=== PATIENT | male | born 1965 | race Caucasian/White ===

== ENCOUNTER 2017-06-15 11:20 | Inpatient (IN) | payer BC, OTHER ==
[~2017-06-15] VITALS: Ht 182.9 cm; Wt 86.6 kg
[2017-06-15 14:15] VITALS: BP 135/87
[2017-06-15] MEDS ORDERED: ACETAMINOPHEN TAB 650MG DOSE (2X325MG) PO PRN (14:30)
[2017-06-15] MEDS ORDERED: MOM 30ML SUSPENSION UDC PO PRN (14:30)
[2017-06-15] MEDS ORDERED: NORCO, ANEXSIA 5/325MG TABLET (HYDROcodone/ACETAMINOPHEN) PO PRN (14:30)
[2017-06-15] MEDS ORDERED: BISACODYL 5 MG TAB PO PRN (14:30)
[2017-06-15] MEDS ORDERED: ACET1TAB17 PO (16:30)
[2017-06-15] MEDS ORDERED: AMLO10TA2 PO (16:30)
[2017-06-15] MEDS ORDERED: KEPP1TAB PO (16:30)
[2017-06-15] MEDS ORDERED: MIRA33504 PO (16:30)
[2017-06-15] MEDS ORDERED: SENN8.6T7 PO (16:30)
[2017-06-15] MEDS ORDERED: POLYVINYL ALCOHOL OPHTH SOLN 15 ML(LIQUITEARS) OU PRN (19:00)
--- NOTE | 2017-06-15 20:53 | CR ---
DATE OF CONSULTATION: 06/15/2017 CONSULTATION REQUESTED BY: Dr. Loco. PRIMARY CARE PROVIDER: Dr. Jorge Vazquez ENT PHYSICIAN: Dr. Harley Medellin. NEUROSURGEON AT [facility]: Dr. Suleiman Woo REASON FOR CONSULTATION: Medical management. HISTORY OF PRESENT ILLNESS: This is a 51-year-old male patient underlying medical history of diverticulitis and also left ear cholesteatoma requiring multiple surgeries by ENT provider. Patient had ENT surgery in 2002, 2007 and 2010, and most recently at [facility], seeing ENT Dr. Harley Medellin for left ear cholesteatoma. Unfortunately the hospital stay was complicated with episode of altered mental status subsequently found to have intracranial hemorrhage on the left side with air in the brain as per patient, resulting in left-sided vision loss, expressive aphasia, decrease in cognitive ability as well as right-sided weakness, upper and lower extremity weakness and patient's baseline is right-handed, is a correction office, baseline high functioning. During the episode, patient also was on Cardene drip at [facility], also requiring hypertonic saline for treatment. Patient's condition progressively improved and stabilized, subsequently was transferred to [facility] under Dr. Parvez Loco for acute rehabilitation. Patient had speech and swallow evaluation done. Patient also has left-sided facial droop with left-sided facial muscle impairment. Patient is a poor historian. Denies any chest pain, chest pain. Pressure or discomfort, fevers, chills, shortness of breath. ALLERGIES: No known drug allergies. PAST MEDICAL HISTORY: Cholesteatoma. Questionable history of hypertension. Patient is also on seizure medication given at [facility] for prophylaxis. PAST SURGICAL HISTORY: Multiple ENT surgeries for patient's cholesteatoma 2002, 2007, 2010 and most recent one that result in the intracranial hemorrhage. SOCIAL HISTORY: Patient quit smoking many years ago. Occasional alcohol use, but rarely once a week or once every two weeks. FAMILY HISTORY: Mother with GI cancer and father with prostate cancer. REVIEW OF SYSTEMS: Limited to patient's verbal ability, but patient seems to be not in any distress. MEDICATION AT [facility]: Patient was on acetaminophen 650 mg by mouth every 4 hours as needed, Norvasc 10 mg by mouth daily, Senna 8.6 50 mg by mouth at bedtime as needed, Keppra 500 mg by mouth twice a day, Chata LAX 17 grams by mouth daily as needed, PHYSICAL EXAMINATION: Vital signs: Temperature 98.5, pulse 74, respiration 18, blood pressure 135/87, pulse oximetry 90% on room air. GENERAL: Patient comfortable in no acute distress. HEENT: Left-sided facial muscle paralysis. Normocephalic. PULMONARY: Bilaterally clear to auscultation. CARDIAC: Regular S1, S2. ABDOMEN: Soft, nontender. Positive bowel sounds. EXTREMITIES: No clubbing, cyanosis or edema. NEUROLOGIC: Patient has expressive aphasia and decrease in cognitive ability. Seems to be having trouble expressing himself and having trouble with written language; unable to write sentences. Furthermore, patient has decrease in strength in right upper and lower extremities. No tongue deviation. Left-sided facial droop. Diminished hearing on the left side due to surgery. LABORATORY DATA: Pending. ASSESSMENT AND PLAN: This is a 51-year-old male patient with underlying medical history of left ear cholesteatoma, multiple surgeries done by ENT, patient was recently having operation by ENT at [facility], subsequently resulted in left-sided temporal intracranial hemorrhage with air in the brain, subsequently resulted in significant neurological deficit mentioned above requiring treatment for hypertensive emergencies as well as hypertonic saline, currently transferred to acute rehabilitation under Dr. Parvez Loco. PROBLEMS: 1. Intracranial hemorrhage with air in the brain. Advised Dr. Loco to consult neurosurgeon. Unfortunately, Dr. Loco does not believe that it is necessary to consult neurosurgeon at this point, therefore physician is uncomfortable giving blood pressure recommendation given history of severe intracranial hemorrhage with neurological deficit, unknown what is a goal blood pressure for the pressure, therefore it is recommended that neurosurgeon be involved furthermore in case there is emergencies while patient is under care. It is beneficial for neurosurgeon to be at least involved from the beginning instead of consulting them while there is an emergency, unfortunately Dr. Loco does not agree, therefore we will defer further management of blood pressure to Dr. Loco. Furthermore, patient is also on Keppra for seizure prophylaxis. We will defer the management of further medication to Dr. Loco as well given that seizure medication Keppra was prescribed by [facility] with neurosurgeon on consult. 2. Constipation. Bowel regimen was prescribed. 3. Intracranial hemorrhage. Management as per Dr. Loco. 4. Cholesteatoma with recent surgery. Further management as per ENT. Recommend getting ENT involved as necessary. 5. Deep vein thrombosis prophylaxis. Given intracranial hemorrhage, we will defer further management of deep vein thrombosis prophylaxis to neurosurgeon or to Dr. Loco. DISPOSITION: Please re-consult medicine service as needed.
[2017-06-15] MEDS: levETIRAcetam 250MG TABLET (KEPPRA) PO SCH (20:59)
[2017-06-15] MEDS: SENNA 8.6 MG TAB (SENOKOT) PO SCH (20:59)
[2017-06-15 21:00] VITALS: BP 133/73
[2017-06-16 06:00] VITALS: BP 119/75
[2017-06-16 06:36] LABS: MEAN CORPUSCULAR HEMOGLOBIN 29.4 pg (27.0-33.0); MEAN CORPUSCULAR HGB CONC 34.5 g/dl (32.0-36.5); MEAN CORPUSCULAR VOLUME 85.3 fl (80.0-96.0); PLATELET COUNT, AUTOMATED 308 10^3/uL (150-450); RED CELL DISTRIBUTION WIDTH 12.6 % (11.5-14.5); WHITE BLOOD COUNT 7.1 10^3/uL (4.0-10.0)
[2017-06-16 06:44] LABS: ADD MANUAL DIFFER YES; DIFF SLIDE NUMBER 63; POSITIVE MORPH POS FLAG; WBC SCAT POS FLAG
[2017-06-16 07:08] LABS: ALBUMIN 3.1 GM/DL (3.2-5.2); ALBUMIN/GLOBULIN RATIO 0.89 (1.00-1.93); ALKALINE PHOSPHATASE 165 U/L (45-117); ALT/SGPT 82 U/L (12-78); ANION GAP 7 MEQ/L (8-16); AST/SGOT 30 U/L (7-37); BILIRUBIN,TOTAL 1.1 MG/DL (0.2-1.0); BLOOD UREA NITROGEN 29 MG/DL (7-18); CALCIUM LEVEL 8.6 MG/DL (8.5-10.1); CARBON DIOXIDE LEVEL 34 MEQ/L (21-32); CHLORIDE LEVEL 98 MEQ/L (98-107); CREATININE FOR GFR 1.13 MG/DL (0.70-1.30); GLOMERULAR FILTRATION RATE > 60.0 (>56); GLUCOSE, FASTING 107 MG/DL (70-105); POTASSIUM SERUM 3.4 MEQ/L (3.5-5.1); SODIUM LEVEL 139 MEQ/L (136-145); TOTAL PROTEIN 6.6 GM/DL (6.4-8.2)
[2017-06-16 07:10] LABS: BASOPHILS 1 % (0-4)
[2017-06-16] MEDS: amLODIPine 5 MG TAB PO SCH (08:44)
[2017-06-16] MEDS: levETIRAcetam 250MG TABLET (KEPPRA) PO SCH ×2 (08:44→20:30)
[2017-06-16 14:00] VITALS: BP 137/72
--- NOTE | 2017-06-16 15:42 | PMRHPE ---
DATE OF ADMISSION: 06/15/2017 REASON FOR ADMISSION: Left intracerebral hemorrhage/CVA secondary to cholesteatoma resection from the left mastoid region on 06/05/2017, that has been complicated by aphasia, dysphagia, dysarthria, left facial droop, left tongue deviation, right upper and lower extremity sensory motor deficit, greater in the upper than lower extremity. HISTORY OF PRESENT ILLNESS: Patient is a 51-year-old white male who was having an elective left cholesteatoma removed on 06/05/2017, at [facility] in [place]. The patient previously was independent in activities of daily living and mobility and driving and right hand dominant. During the course of the operation, the patient developed a left facial droop and subsequent brain imaging showed moderate sized parenchymal hematoma of the left temporal lobe with the symptoms noted above. The patient has been being treated to improve nutrition and medically stabilized and then started in physical, occupational, and speech therapy and has finally been able to participate at a higher level of functioning and is felt to be appropriate today for neurorehabilitation and was discharged from [facility] and is to be admitted today to the acute rehabilitation unit at [facility] for neurorehabilitation including physical therapy, occupational therapy and speech therapy. Upon admission, patient expressed his frustration with not going directly home, though his family was in agreement and aware that he was being admitted here for neurorehabilitation. PAST MEDICAL HISTORY: Includes cholesteatoma removal, diverticular disease, left-sided hearing loss from prior cholesteatoma removal, and problems with equilibrium. PAST SURGICAL HISTORY: Included middle ear surgery on the left in 2004 and 2007 with left mastoidotomies. ALLERGIES: No known allergies. Home medications were just the multivitamin medications. On admission today, are: - Tylenol - [place] 325/5 - amlodipine for hypertension 5 mg daily - Dulcolax tablets 5 mg daily as needed for constipation, no bowel movement of significance in the last few days - Keppra 500 mg twice a day for seizure prophylaxis - milk of magnesia 30 mL daily as needed for constipation - Senokot one tablet by mouth nightly for bowel management SOCIAL HISTORY: The patient lives with his . Does not drink other than occasional alcohol. No illicit drugs and does not smoke.. FAMILY HISTORY: Includes father with prostate cancer. REVIEW OF SYSTEMS: Principally those noted above. PHYSICAL EXAMINATION: The patient is an average height, 86 kg, middle aged white male who looks approximately his stated age except for premature balding and has left facial droop and seems to not appreciate his situation well. VITAL SIGNS: Temperature is 98.5, blood pressure 135/87, with a pulse of 72, respirations 18, pulse oximetry 98% on room air. HEENT: Shows difficulty with closing the right eye, frequently blinking it, and right pupil being approximately 1-2 mm larger than the left, the right being approximately 8 mm, the left being 6-7 mm. Extraocular motion: Patient having difficulty concentrating to do the tracking versus poor effort. Nasal area shows straight septum and nasal passages clear without drainage. Hearing is decreased on the left and fair on the right. Tongue deviates to the left along with left facial droop. There is definite problems with word finding and speech is fairly concrete, but no gurgling and only mild dysarthria. No carotid bruits were appreciated on auscultation. LUNGS: Clear in all craig to auscultation. CORONARY: Shows a regular rate and rhythm with normal S1 and S2 without S3 or S4 murmurs or rubs and 2/4 bilateral radial pulses. ABDOMEN: Benign, nontender, with normal bowel sounds in all quadrants. EXTREMITIES: With functional range of motion and tone is essentially normal in bilateral upper and lower extremities. NEUROLOGIC: Patient is alert and oriented to self, partially to place, unclear as to time, but clearly does not fully appreciate his situation and seems to be unaware of multiple deficits. Speech is as noted above. Memory untested. Light touch and vibration: The patient could not report presence in the right upper and lower extremity, though did note their presence in the left upper and lower extremity. Deep tendon reflexes showed 2/4 bilateral knee jerks, 1/4 biceps, triceps, brachial radialis in bilateral upper extremities, trace ankle jerks and downgoing toes on plantar stimulation. Patient, however, when his right arm was picked up and placed above his head, was able to hold it in space without dropping it. Could not or would not follow directions to reach up and grab my fingers in front of him with his right upper extremity. However, in the left upper extremity, the patient showed weak grasp, but better pulling and pushing. However, of interest, patient is definitely showing notably better than 3/5 strength in bilateral upper and lower extremities as he moves in the bed and rolls side to side and seems to prefer laying on his right side. As patient's effort seems to be diminished tonight, visual field challenges were not attempted. ASSESSMENT/PLAN: 1. Rehabilitation of left temporal lobe intracerebral hemorrhage/CVA with left facial droop, left tongue deviation, dysarthria, dysphagia, aphasia, right upper and lower extremity sensory motor deficits and what is probably likely balance deficit related to this surgically related CVA: Will go ahead and start patient in assessment with physical, occupational, and speech and language therapies using also rehabilitation nursing and physiatry assessment and education of the patient and family. Patient does need neuromuscular facilitation of his right upper and lower extremity and it is unclear how much of the problems are his level of effort. as he is not happy to have been transferred here instead of just allowed to go home. I do believe patient is under the mythical thinking that he was well at home and if he goes home he will be well again. However, it is going to be crucial for patient's safety for him to become aware of his strengths and deficits. 2. Cholesteatomas: Patient with multiple repeat growths and secondary balance and hearing loss. Currently, does not seem to have problems with wound or this. Patient has not been challenged on walking or even for sitting balance here and we will assess that more tomorrow. Patient will followup with otolaryngology (ENT) and neurosurgery at [facility]. 3. Constipation: Will go ahead and have nursing give patient the Dulcolax tablets today to try and get the bowels functioning, also ambulation should be helpful for this. 4. Hypertension: Will go ahead and monitor this and the appropriate dose of amlodipine or other antihypertensive. 5. Seizure prophylaxis: Will go ahead and continue the Keppra 500 mg twice a day. 6. Deep venous thrombosis (DVT) prophylaxis: Will use thromboembolism deterrent (OLEGARIO) hose and sequential compressive stockings. However, as patient had a spontaneous intracerebral hemorrhage, I will not go ahead and start using heparin, Coumadin, or aspirin at this time. POSTADMISSION PHYSICIAN EVALUATION: The patient dietary-[place] was advanced to a regular diet with thin liquids, but not on the basis of a modified barium swallow, but rather on bedside trials. We will keep a close eye on this. Also, it had been relayed to us that patient understood and was motivated to come for acute intensive rehabilitation. At this time, it appears patient continues to have some confusion and that his family is motivated. We will see how patient does in therapy and hopefully, for his benefit, he will embrace the program. I do feel he is quite capable of participating in and benefiting from 3 hours of physical, occupational, and speech therapy per day and that, if he does, he does have a good prognosis for returning to home with his family, who seem to be very supportive. At this time, I am anticipating a length of stay of 14 days, though this may be modified by patient's involvement and effort. However, because of the confusion and the patient not being clearly motivated, I only have rated his prognosis as fair, which is totally dependent on his willingness to participate and learn from his therapies. Time spent on chart review, history and physical (H and P), and documentation: Greater than 70 minutes.
[2017-06-16 18:28] LABS: MAGNESIUM LEVEL 2.8 MG/DL (1.8-2.4)
[2017-06-16] MEDS ORDERED: POTASSIUM CHLORIDE 10 MEQ SR TABLET PO ONE (18:30)
[2017-06-16 20:00] VITALS: BP 137/69
[2017-06-16] MEDS: SENNA 8.6 MG TAB (SENOKOT) PO SCH (20:30)
[2017-06-17 06:00] VITALS: BP 130/73
[2017-06-17] MEDS: levETIRAcetam 250MG TABLET (KEPPRA) PO SCH ×2 (08:46→21:20)
[2017-06-17] MEDS: amLODIPine 5 MG TAB PO SCH (08:47)
[2017-06-17 14:00] VITALS: BP 137/67
[2017-06-17 20:00] VITALS: BP 134/71
[2017-06-17] MEDS: SENNA 8.6 MG TAB (SENOKOT) PO SCH (21:00)
[2017-06-18 06:00] VITALS: BP 134/68
[2017-06-18 07:37] LABS: MEAN CORPUSCULAR HEMOGLOBIN 29.9 pg (27.0-33.0); MEAN CORPUSCULAR HGB CONC 34.4 g/dl (32.0-36.5); MEAN CORPUSCULAR VOLUME 87.1 fl (80.0-96.0); PLATELET COUNT, AUTOMATED 368 10^3/uL (150-450); RED CELL DISTRIBUTION WIDTH 12.7 % (11.5-14.5); WHITE BLOOD COUNT 7.3 10^3/uL (4.0-10.0)
[2017-06-18 07:55] LABS: ANION GAP 5 MEQ/L (8-16); BLOOD UREA NITROGEN 18 MG/DL (7-18); CARBON DIOXIDE LEVEL 35 MEQ/L (21-32); CHLORIDE LEVEL 101 MEQ/L (98-107); CREATININE FOR GFR 1.11 MG/DL (0.70-1.30); GLOMERULAR FILTRATION RATE > 60.0 (>56); GLUCOSE, FASTING 96 MG/DL (70-105); POTASSIUM SERUM 3.8 MEQ/L (3.5-5.1); SODIUM LEVEL 141 MEQ/L (136-145)
[2017-06-18] MEDS: levETIRAcetam 250MG TABLET (KEPPRA) PO SCH (08:17)
[2017-06-18 08:18] VITALS: BP 134/68
[2017-06-18] MEDS: amLODIPine 5 MG TAB PO SCH (08:18)
[2017-06-18] MEDS ORDERED: KEPP1TAB PO (08:30)
[2017-06-18] MEDS ORDERED: AMLO10TA2 PO (08:30)
--- NOTE | 2017-06-18 19:28 | PMRDS ---
DATE OF ADMISSION: 06/15/2017 DATE OF DISCHARGE: 06/18/2017 DISCHARGE DIAGNOSIS: Left intercerebral hemorrhage/CVA secondary to cholesteatoma resection from the left mastoid region on 06/05/2017 complicated by aphasia, dysphagia, dysarthria, left facial droop, left tongue deviation, right upper and lower extremity sensory motor deficits, which are greater in the upper and the lower extremity. HISTORY: This right hand dominant gentleman who had sensory motor deficits into his right upper extremity following the development of left temporal lobe bleed and stroke in the immediate surgical/postsurgical period of 06/05/2017 at [facility]. The patient was stabilized and after knowing left facial droop and brain imaging showed moderate sized parenchymal hematoma of the left temporal lobe with the above symptoms. Having been stabilized, the patient was evaluated in physical, occupational and speech therapy and started showing rapid improvement in his oral control on bedside evaluation, though his one modified barium swallow did show penetrance of different textures and consistencies. The patient was transitioned to a regular diet and was transferred from [facility] for admission here on 06/15/2017. HOSPITAL COURSE: The patient, upon arriving here, was very upset with his family and also upset with the staff here as he thought that he was going home and did not have any deficits in spite of his aphasia and communication deficits. The patient did agree to stay and was started in evaluations and training with physical, occupational and speech therapy. This morning upon arriving, I was notified that the patient and his had come to the agreement that they wanted him to go home today. The has been reviewed on the patient's deficits and risk and being fully competent has agreed to the discharge. The patient; however, due to his aphasia, remains oriented to self and only partially to place and situation. They have agreed to home care with physical and occupational therapy and as there is no home care speech therapy, referral for speech therapy in [place] where they live. Please see therapy evaluations and notes, as the patient is departing on rehab unit day four. PROCEDURES PERFORMED: None. LABORATORY DATA: The patient with mild anemia, currently hemoglobin of 13.4 and hematocrit of 39.0, normal white count and on admission potassium was slightly low at 3.4 and now it is 3.8 and BUN has improved from 29 down to 18, in the normal range with normal creatinine. Fasting blood sugar this morning was 96, in the normal range. Calcium is normal at 9.0. Total bilirubin on admission was elevated at 1.1. ALT elevated at 82 and alkaline phosphatase elevated at 165 with an albumin slightly below normal at 3.1. The patient did not have any trouble with meals and will remain on regular diet with thin liquids, but should sit up for all meals, double swallow and pace size and rate of feedings. DISCHARGE MEDICATIONS: - Tylenol 650 mg every 4 hours as needed for pain or fever - Senokot S two tablets at night for constipation on an as needed basis - MiraLAX 17 grams by mouth daily as needed for constipation - amlodipine 10 mg daily - Keppra for seizure prophylaxis 500 mg twice a day The patient is to use a walker for mobility and transfers, as well as basic activities of daily living for his safety as he does have deficit with balance, as well as right spatial and body awareness. Patient to followup with Dr. Barrera at [facility] in 3 to 4 weeks, Dr. Harley Curry in 1 to 2 weeks at [facility], and Dr. Vazquez, his primary care provider, in 1 to 2 weeks in [place]. While I do not feel that this was the best decision for the patient, I do feel that he would benefit from ongoing acute intensive rehabilitation, especially with regard to speech therapy. I do not feel this is unreasonable for him to go and have therefore prescribed medicines and written for this discharge. There were no complications during the admission. Time spent on discharge was greater than 35 minutes.
== END 2017-06-18 10:12 | disposition home health service (06) | DRG 58 ==
LOC: M PM&R 14:02
PROVIDERS: ADMIT Physical Medicine & Rehabilitation; ATTEND Physical Medicine & Rehabilitation
DX: I69.192 Facial weakness following nontraumatic intracerebral hemorrhage (principal); I10 Essential (primary) hypertension; I69.122 Dysarthria following nontraumatic intracerebral hemorrhage; I69.120 Aphasia following nontraumatic intracerebral hemorrhage; I69.198 Other sequelae of nontraumatic intracerebral hemorrhage; H71.92 Unspecified cholesteatoma, left ear; K59.00 Constipation, unspecified; Z87.891 Personal history of nicotine dependence

== ENCOUNTER → 2018-07-20 | Outpatient (CLI) | payer OTHER, BC ==
[~2018-07-20] MED LIST: ACET1TAB55 PO; AMLO10TA5 PO; KEPP1TAB PO; MIRA33504 PO; SENN8.6T7 PO
--- NOTE | 2018-07-24 08:38 | REP ---
MRI right ankle without contrast: History: Pain in the right ankle. Evaluate tibialis posterior tendon. No comparison imaging. Technique: Axial, coronal and sagittal imaging planes are utilized for T1 and T2-weighted scans obtained with and without fat saturation. MRI findings: Cortical and medullary bone signal intensity are normal. 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 The tibialis posterior tendon is unremarkable. The flexor hallicis longus and flexor digitorum tendons are intact. Achilles tendon is unremarkable. Plantar fascia appears smooth. Peroneus longus and brevis tendons shows slight thickening just below the lateral malleolus consistent with tendinosis in both the brevis and longus tendons. No discontinuity. Ankle mortise is intact. There is no evidence of joint effusion. No osteochondral defect lesion is appreciated. 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 Electronically Signed by David Huerta MD 07/24/2018 06:31 P
== END ==
LOC: M RAD 11:33
PROVIDERS: ATTEND Orthopaedic Surgery
DX: M25.571 Pain in right ankle and joints of right foot (principal); M65.871 Other synovitis and tenosynovitis, right ankle and foot